=== PATIENT | female | born 1960 | race Caucasian/White ===

== ENCOUNTER 2024-07-23 09:04 | Emergency (ER) | payer OTHER, BC, SELFPAY ==
[2024-07-23 09:04] VITALS: BP 122/74; PULSE 66; RESP 14; TEMP 36.6; O2SAT 99; BMI 27.8
--- NOTE | 2024-07-23 09:18 | CT_ITS ---
PROCEDURE: SPINE CERVICAL WITHOUT CONTRAS 07/23/2024 REASON FOR EXAM: TRAUMA, PAIN COMPLAINTS OF NECK PAIN. TECHNIQUE: Contiguous axial scans of 1.25 mm slice thicknesses. Sagittal and coronal reconstruction images were obtained. One or more dose reduction techniques were used (e.g., automated exposure control, adjustment of mA and/or kv according to patient size, use of iterative reconstruction technique). RADIATION DOSE SUMMARY: DLP: 1098.61 mGycm COMPARISON: No relevant prior. FINDINGS: Vertebra: Vertebral bodies normal in height. Minor spondylosis anteriorly and posteriorly. C1-C2: Atlantoaxial articulation is maintained. Alignment: No scoliosis. No spondylolisthesis. Discs: Narrowing of the C4 through C7 interspaces, [id number]. Foramens: Unremarkable. Facets: Unremarkable. Soft tissues: Prevertebral soft tissues are normal. CT/Spine Cervical without Contras IMPRESSION: Mild multilevel spondylosis and degenerative disc disease. No acute osseous abnormalities. Reading Location: [facility]
--- NOTE | 2024-07-23 09:18 | RAD_ITS ---
EXAM: RIBS UNILATERAL MINIMUM THREE VIEWS WITH PA CHEST CLINICAL HISTORY: PATIENT FELL. NECK AND SHOULDER PAIN. BRUISING LEFT UPPER RIB COMPARISON: NO RELEVANT PRIOR. TECHNIQUE: THREE VIEWS OF THE RIBS AND PA CHEST FINDINGS: No acute or chronic fractures are demonstrated. No other osseous abnormalities. Adjacent lung and pleura appear normal. No active cardiopulmonary disease. RAD/Ribs Uni Min 3V w/PA Chest IMPRESSION: 1. Normal left ribs. 2. No active cardiopulmonary disease. Reading Location: [facility]
--- NOTE | 2024-07-23 09:18 | CT_ITS ---
PROCEDURE: BRAIN/HEAD WITHOUT CONTRAST 07/23/2024 REASON FOR EXAM: TRAUMA Patient tripped at work and hit her head. Complains of neck pain. Denies loss of consciousness. TECHNIQUE: Contiguous axial scans of 3.75 mm slice thicknesses with sagittal and coronal reconstruction images. One or more dose reduction techniques were utilized (e.g., automated exposure control, adjustment of mA and/or kv according to patient size, use of iterative reconstruction technique). RADIATION DOSE SUMMARY: DLP: Not given. FINDINGS: Cerebrum: No intraparenchymal hemorrhage. No abnormal areas of encephalomalacia. No mass effect or midline shift. Callahan-white matter differentiation is normal. Ventricles and cisterns: Appropriate size for patient's age. Extra-axial fluid: Unremarkable. Posterior fossa: Unremarkable cerebellum. No abnormalities involving the brainstem. Paranasal sinuses: Normal. Vasculature: Unremarkable. Mastoid air cells: unremarkable. Calvarium: Unremarkable. Soft tissues: Unremarkable. . CT/Brain/Head without Contrast IMPRESSION: NO ACUTE FINDINGS. Reading Location: [facility]
--- NOTE | 2024-07-23 09:19 | EX.ED.GENINJ ---
HPI History of Present Illness Chief Complaint: Head Injury Narrative Narrative: 64-year-old female past medical history of mitral valve prolapse, takes atenolol, presents with injury to her left anterior chest, head and neck that she sustained approximately 3 hours ago. She states that while she was at work, she tripped, wearing nonskid shoes. She states that she fell forward into the rounded edge of a table. She was trying to catch herself. Her left chest hit the edge of the table. Additionally, she fell forward, and there was a large trash can there. She hit the top of her head on the handle. She states that there was a large goose egg on the top of her scalp which has now receded. She started getting neck tightness, pain in her bilateral paraspinal areas radiating to her trapezius. She denies any loss of consciousness, no other injury. She states she felt more neck tightness, and had one of her coworkers rub ointment into the area to help relax the muscles. Previously, they stated that the area was reddened. Patient does not take blood thinners. She presents mainly with injuries to the top of her head, neck stiffness, and bruising to her anterior chest wall on the left of the sternal border. PFSH PFSH Allergy/AdvReac Type Severity Reaction Status Date / Time No Known Allergies Allergy Verified 07/23/24 09:05 Social History (Updated 07/23/24 @ 09:32 by Astrid Talavera) household members: spouse housing: house Smoking Status: Never smoker ROS ROS ED ROS Narrative Review of systems positive for scalp contusion and tenderness on the top of her head. Neck muscle stiffness and pain. Bruising to left anterior chest/ribs. Denies other injury. No loss of consciousness. Seymour tightness across shoulders and neck as well. EXAM Physical Exam Narrative Exam Narrative: GCS 15. ABCs intact. HEENT examination shows PERRL, EOMI. Mild tenderness to palpation on top of scalp more towards occiput. No noted hematoma or crepitance. Neck is soft and supple with mild tenderness throughout the paraspinal muscles. Full range of motion of neck. No vertebral point tenderness or bony step-off. Cardiovascular examination reveals a regular rate and rhythm. Lungs are clear to auscultation bilaterally. There is small ecchymosis without crepitance with mild tenderness on the ribs left of the sternum. No crepitance. Abdomen soft and nontender without guarding or rebound. Neurological examination is nonfocal, nonlateralizing. She is awake, alert, oriented x 3. She is able to raise her arms above her head without difficulty. Const Vital Signs: 07/23/24 09:04 07/23/24 09:32 Temperature 98 F Temperature Source Temporal Pulse Rate 66 Respiratory Rate 14 Respiratory Effort Normal Non-Labored Respiratory Depth Normal Respiratory Pattern Normal Blood Pressure 122/74 H Blood Pressure Mean 90 Pulse Ox 99 100 Oxygen Delivery Method Room Air Room Air MDM MDM MDM Narrative Medical decision making narrative: Differential diagnosis includes but not limited to scalp contusion versus intracranial hemorrhage versus skull fracture versus cervical spine fracture versus neck strain versus cervical sprain. Bruising on her anterior chest wall could be secondary to rib fracture versus rib contusion. Imaging was obtained including CT of the brain and cervical spine to help rule out fracture or hemorrhage. X-rays were obtained of the left ribs and interpreted by myself independently. I see no evidence of an acute fracture or pneumothorax. I reviewed the radiology report which confirms my independent interpretation. I reviewed the radiology reports of the CT of the brain which shows no evidence of fracture or hemorrhage as well as the cervical spine which does show degenerative disc disease but no acute fracture. At this point in time, I feel she can be discharged to follow-up with the [place] [facility] [employer] provider of her choice. She was referred to [facility] as well. She feels well enough to return to work today. I gave her the limitation of activity as tolerated today. I feel she can be discharged to follow-up. Return instructions to the emergency department were reviewed. Feel [id number] medications can be taken as needed for analgesia and sufficient for pain. Disposition is discharged home in stable condition. History & Record Review Discussion w/independent historian: Patient Radiography Diagnostic Testing: Clinical Impression(s) from Imaging Studies Brain CT 07/23/24 09:18 IMPRESSION: NO ACUTE FINDINGS. Reading Location: [facility] Cervical Spine CT 07/23/24 09:18 IMPRESSION: Mild multilevel spondylosis and degenerative disc disease. No acute osseous abnormalities. Reading Location: [facility] Ribs w/Chest X-Ray 07/23/24 09:18 IMPRESSION: 1. Normal left ribs. 2. No active cardiopulmonary disease. Reading Location: [facility] Discharge Plan Triage Chief Complaint: Head Injury ED Provider: Martin Valdes Dx/Rx/DC Orders Clinical Impression: Accident due to mechanical fall without injury, Scalp contusion, Neck strain, Chest wall contusion Primary Care Provider: Rosalio Lynch Referrals: Rosalio Lynch DO [Primary Care Provider] - Activity Restrictions/Additional Instructions: Follow-up with the [facility] in the next day or [address] [facility] provider of your choice. Return to work today with activity as tolerated. Ptci-[id number] medications such as Tylenol or ibuprofen as needed for pain. Apply ice to affected area for approximately 10 minutes 2-3 times daily for the next few days. Print Language: Upper Sorbian Disposition Disposition: Home, Self Care
[2024-07-23 09:32] VITALS: O2SAT 100
--- NOTE | 2024-07-23 10:20 | PCA ---
CALLED [facility] @ [id number] FOR DRUG TEST AND SHE WILL CALL BACK JARED, SHE HAS TRAINING TODAY
[2024-07-23 11:29] VITALS: BP 118/74; PULSE 71; RESP 15; O2SAT 99
[2024-07-23 11:30] VITALS: BP 118/74; PULSE 71; RESP 15; TEMP 36.6; O2SAT 99
== END 2024-07-23 11:30 | disposition home or self-care (01) ==
PROVIDERS: Emergency Provider Emergency Medicine; PCP Family Medicine; Visit Provider Emergency Medicine
DX: S00.03XA Contusion of scalp, initial encounter (principal); S20.20XA Contusion of thorax, unspecified, initial encounter; S16.1XXA Strain of muscle, fascia and tendon at neck level, initial encounter; I34.1 Nonrheumatic mitral (valve) prolapse; Z79.899 Other long term (current) drug therapy; W01.198A Fall on same level from slipping, tripping and stumbling with subsequent striking against other object, initial encounter; Y99.0 Civilian activity done for income or pay; Y92.89 Other specified places as the place of occurrence of the external cause
CPT/HCPCS: 70450; 71101; 72125; 99282